=== PATIENT | male | born 1985 | race Caucasian/White ===

== ENCOUNTER → 2016-10-31 | Outpatient (CLI) | payer SELFPAY ==
--- NOTE | 2016-10-31 12:58 | MRI ---
EXAM DESCRIPTION: Lumbar Spine w/o Contrast CLINICAL HISTORY: 30 years, Male, LOW BACK PAIN left hip pain COMPARISON: FINDINGS: Sagittal and axial sequences. Bone marrow is normal signal characteristics. Slight straightening suggests muscular spasm. Conus terminates at about L2. L1-2, L2-3 and L3-4 within normal limits. At L4-5 small focal central and left-sided protrusion about 4 mm flattening the thecal sac. Slight narrowing of the left exit foramen. At L5-S1 large focals central left-sided protrusion almost 1 cm in front to back dimensions. Width about 1.2 cm. This impinges on the descending left S1 root with narrowing of the left exit foramen IMPRESSION: 1. Focal central left-sided protrusion L5-S1. Impingement on the descending left S1 root and left L5-S1 exit foramen 2. Small focal central and left-sided protrusion L4-5 Electronically signed by: Torito Granda MD 10/31/2016 12:57 PM CDT
== END | disposition home or self-care (01) ==
LOC: MRI 06:32
PROVIDERS: ATTEND Family Medicine
DX: M51.26 Other intervertebral disc displacement, lumbar region (principal)